=== PATIENT | female | born 1990 | race Caucasian/White ===

== ENCOUNTER 2017-05-07 13:07 | Emergency (ER) | payer SELFPAY ==
[2017-05-07 13:14] VITALS: RESP 18; O2SAT 97
--- NOTE | 2017-05-07 13:31 | EDPHY ---
HPI/HX/ROS/PE/MDM Narrative: CHIEF COMPLAINT: Anxiety HPI: The patient is a 26 y/o female arriving with her after she experienced difficulty breathing, chest pain, and anxiety while arguing with her . She describes feeling tense with a sharp pain in her chest and "like she couldn't breath". Her reports he could seen swelling in her chest. They used marijuana and symptoms dissipated. She denies any other associated symptoms. She denies history of medical issues. REVIEW OF SYSTEMS: Aside from elements discussed in the HPI, a comprehensive 10-point review of systems was reviewed and is negative. PMH: Denies SOCIAL HISTORY: , marijuana user, PHYSICAL EXAM: General:Patient is alert, in no acute distress. ENT:Eyes are normal to inspection. ENT inspection normal. Neck: Normal inspection. Full range of motion. Respiratory:No respiratory distress. Breath sounds normal bilaterally. Cardiovascular: Regular rate and rhythm. Strong peripheral pulses. Normal cap refill. Abdomen:The abdomen is nontender to palpation. There are no peritoneal signs. There are normal bowel sounds. Back: Normal to inspection. No tenderness to palpation. Skin: Normal color. No rash. Warm and dry. Extremities: Normal appearance. Full range of motion. Neuro: Oriented x3. Normal motor function. Normal sensory function. ED Course: EKG was ordered and interpreted by myself. EKG was normal. Please see [facility] system for official reading. Study: X-ray of the chest Indication: chest pain Results: X-ray of the chest was obtained. The results of the study are: normal The study was read by the radiologist, Dr. Carbajal. I viewed the images myself on the PACS system. I reassessed the patient and informed her of the results of her workup, which was largely negative. I feel she is safe to return home. She agrees. Follow-up instructions and return precautions given. MDM: This is a young healthy female with a panic attack. Her ECG and CXR and normal and she is now asymptomatic after using marijuana. I do not think further workup is indicated. - Data Points Imaging Results: Imaging Impressions Chest X-Ray 05/07/17 13:31 Impression: Possible airways disease. General Time Seen by Provider: 05/07/17 13:23 Initial Vital Signs: Initial Vital Signs Temperature (C) 36.6 C 05/07/17 13:10 Heart Rate 95 11/21/17 13:10 Respiratory Rate 18 05/07/17 13:10 Blood Pressure 112/76 05/07/17 13:10 O2 Sat (%) 97 05/07/17 13:10 O2 Delivery Mode Room Air Allergies/Adverse Reactions: No Known Allergies Allergy (Unverified 05/07/17 13:10) Home Medications: Medication Instructions Recorded NK [No Known Home Meds] 05/07/17 Departure - Departure Disposition: Home, Routine, Self-Care Clinical Impression: Anxiety Condition: Good Instructions: Anxiety (ED) Additional Instructions: 1. Follow-up with your primary care provider for unimproved symptoms. 2. Return to the ED for worsening of condition. Referrals: NONE *PRIMARY CARE P,. [Primary Care Provider] - As per Instructions Nhung Singleton DO [Doctor of Osteopathy] - As per Instructions Stand Alone Forms: Work Excuse Report Scribed for: Angelito Murillo Report Scribed by: Anamaria Dawn Date of Report: 05/07/17 Time of Report: 13:24 Physician Review and Approval Statement: Portions of this note were transcribed by an ED scribe. I personally performed the history, physical exam, and medical decision making; and confirm the accuracy of the information in the transcribed note.
--- NOTE | 2017-05-07 13:46 | CPEKG ---
Heart Rate: 78 RR Interval: 769 P-R Interval: 160 QRSD Interval: 82 QT Interval: 372 QTC Interval: 424 P Josephine: 73 QRS Josephine: 76 T Wave Josephine: 42 EKG Severity - NORMAL ECG - EKG Impression: SINUS RHYTHM Electronically Signed By: Sid Velez 08-May-2017 06:59:00
[2017-05-07 14:02] VITALS: BP 110/80; PULSE 70; TEMP 98.4
== END 2017-05-07 14:07 | disposition home or self-care (01) ==
DX: F41.9 Anxiety disorder, unspecified (principal)